=== PATIENT | male | born 1995 | race Asian ===

== ENCOUNTER 2020-07-14 15:26 | Inpatient (IN) | payer BC ==
[~2020-07-14] VITALS: Ht 175.3 cm; Wt 68.9 kg
[2020-07-14 15:37] VITALS: Ht 175.3 cm; Wt 68.9 kg
[2020-07-14 17:46] LABS: BASOPHIL % 0.5 % (0.2-1.5); PLATELET COUNT 290 x10^3mcL (152-348); RED CELL DISTRIBUTION WIDTH 12.7 % (12.1-16.2)
[2020-07-14 18:00] LABS: CHLORIDE SERUM 99 mmol/L (98-107); POTASSIUM SERUM 3.9 mmol/L (3.5-5.1); SODIUM SERUM 136 mmol/L (136-145)
[2020-07-14 18:10] LABS: CALCIUM 8.9 mg/dL (8.5-10.1); CARBON DIOXIDE 25.7 mmol/L (21-32); CREATININE SERUM 0.9 mg/dL (0.7-1.3); GFR1 > 60 mL/min; GLUCOSE SERUM 87 mg/dL (74-106)
[2020-07-14 18:15] LABS: ALBUMIN 4.3 g/dL (3.4-5.0); ALKALINE PHOSPHATASE 86 U/L (46-116); ALT/SGPT 25 U/L (16-63); AST/SGOT 10 U/L (15-37); BILIRUBIN TOTAL 1.15 mg/dL (0.20-1.00); LIPASE 74 IU/L (73-393); TOTAL PROTEIN, SERUM 7.9 g/dL (6.4-8.2)
[2020-07-14 22:44] LABS: FREE T4 0.89 ng/dL (0.76-1.46); FREE THYROXINE INDEX 2.4 ug/dL (1.4-4.5); T4(THYROXINE) 6.4 ug/dL (4.7-13.3)
[2020-07-14 22:47] LABS: T3 TOTAL 0.85 ng/mL
[2020-07-14 23:32] LABS: MAGNESIUM 2.2 mg/dL (1.8-2.4); PHOSPHOROUS 3.7 mg/dL (2.5-4.9)
[2020-07-14 23:33] LABS: CHOLESTEROL/HDL RATIO 2.8
[2020-07-15 00:34] VITALS: BP 116/62
[2020-07-15 05:45] VITALS: BP 104/57
[2020-07-15 08:14] LABS: BASOPHIL % 0.5 % (0.2-1.5); PLATELET COUNT 268 x10^3mcL (152-348); RED CELL DISTRIBUTION WIDTH 12.5 % (12.1-16.2)
[2020-07-15 08:51] LABS: CALCIUM 8.5 mg/dL (8.5-10.1); CARBON DIOXIDE 24.9 mmol/L (21-32); CHLORIDE SERUM 105 mmol/L (98-107); CREATININE SERUM 0.8 mg/dL (0.7-1.3); GFR1 > 60 mL/min; GLUCOSE SERUM 68 mg/dL (74-106); POTASSIUM SERUM 3.8 mmol/L (3.5-5.1); SODIUM SERUM 141 mmol/L (136-145)
[2020-07-15 08:59] VITALS: BP 112/62
[2020-07-15 09:21] LABS: microscopic required? NO
[2020-07-15 10:01] LABS: UA SPECIFIC GRAVITY 1.025 (1.005-1.035); urine erythrocyte NEGATIVE (NEGATIVE)
[2020-07-15 10:11] LABS: AMPHETAMINE QUAL UR NONE DETECTED (See below)
[2020-07-15 16:11] VITALS: BP 106/53
[2020-07-15 21:25] VITALS: BP 122/62
[2020-07-16 06:10] VITALS: BP 109/52
[2020-07-16 09:31] VITALS: BP 105/57
[2020-07-16 11:35] LABS: BASOPHIL % 0.5 % (0.2-1.5); PLATELET COUNT 268 x10^3mcL (152-348); RED CELL DISTRIBUTION WIDTH 12.5 % (12.1-16.2)
[2020-07-16 11:55] LABS: CALCIUM 8.1 mg/dL (8.5-10.1); CARBON DIOXIDE 28.2 mmol/L (21-32); CHLORIDE SERUM 107 mmol/L (98-107); CREATININE SERUM 0.9 mg/dL (0.7-1.3); GFR1 > 60 mL/min; GLUCOSE SERUM 93 mg/dL (74-106); POTASSIUM SERUM 3.7 mmol/L (3.5-5.1); SODIUM SERUM 143 mmol/L (136-145)
[2020-07-16 12:20] VITALS: BP 114/60
[2020-07-16 13:19] VITALS: BP 114/60
[2020-07-16 17:16] VITALS: BP 119/61
== END 2020-07-16 19:55 | disposition home or self-care (01) | DRG 343 ==
LOC: ED 15:26 → MU 21:20
PROVIDERS: Emergency Medicine; Surgery; ADMIT Internal Medicine; ATTEND Internal Medicine
PROC: 0DTJ4ZZ Resection of Appendix, Percutaneous Endoscopic Approach (ICD-10-PCS; principal; 2020-07-15 09:00)
DX: K35.80 Unspecified acute appendicitis (principal); Z20.822 Contact with and (suspected) exposure to COVID-19
CPT/HCPCS: 84439; G0378; J2175; J2543; J3010; J3490; J7030; U0003